=== PATIENT | female | born 1930 | race Caucasian/White ===

== ENCOUNTER → 2016-05-31 | Outpatient (CLI) | payer OTHER ==
[~2016-05-31] MED LIST: ADULT LOW DOSE81 M1 PO; ALDACTONE50 MG PO; ALLOPURINOL100 MG PO; COUMADIN,JANTOVE1 MG PO; COUMADIN1 MG PO; LASIX40 MG PO; PRINIVIL20 MG PO; SILDENAFIL PO; TOPROL XL50 MG PO; TORSEMIDE100 MG PO; WARFARIN SODIUM1 MG PO; ZOCOR20 MG PO
[2016-05-31 09:52] LABS: TYPE OF FLUID PLEURAL
[2016-05-31 10:40] LABS: BODY FLUID LDH 88 IU/L; BODY FLUID PROTEIN 3.7 G/DL
[2016-05-31 10:42] LABS: BODY FLUID RBC'S 103500 /MM^3 (0-100); BODY FLUID WBC'S 383 /MM^3 (0-500); RED CELL AREA COUNTED 0.4; RED CELL DILUTION 10; WBC AREA COUNTED 8; WBC DILUTION 1; WHITE CELL RAW COUNT 306
[2016-05-31 10:45] LABS: BODY FLUID EOSINOPHILS 0 % (0-25); MONO RAW COUNT 54; MONONUCLEAR WBC'S 54 %; POLY RAW COUNT 46; POLYNUCLEAR WBC'S 46 % (0-25)
== END | disposition home or self-care (01) ==
LOC: RAD 08:26 → EDSTATUS 09:00 → RAD 09:00
PROVIDERS: Radiology Diagnostic Radiology
PROC: 0W993ZZ Drainage of Right Pleural Cavity, Percutaneous Approach (ICD-10-PCS; principal; 2016-05-31)
DX: J90 Pleural effusion, not elsewhere classified (principal)
CPT/HCPCS: 82945; 83615 91; 84157; 87070; 87075; 87205; 88108; 88305; 89051

== ENCOUNTER → 2016-09-15 | Outpatient (CLI) | payer OTHER ==
[~2016-09-15] MED LIST changes: +BENTYL20 MG PO; +BUMEX2 MG PO; +INCRUSE ELLI62.5 MCG IH; +METOPROLOL TART25 MG PO; +PROAIR HFA8.5 GM IH
[2016-09-15 09:49] LABS: INTER. NORMALIZED RATIO 1.4; PROTHROMBIN TIME 14.3 (9.2-11.2); PTT 29.1 (25-32)
== END | disposition home or self-care (01) ==
LOC: OPR 08:31 → EDSTATUS 09:00 → OPR 09:00
PROVIDERS: Internal Medicine Pulmonary Disease
PROC: 0B9K30Z Drainage of Right Lung with Drainage Device, Percutaneous Approach (ICD-10-PCS; principal; 2016-09-15)
DX: J90 Pleural effusion, not elsewhere classified (principal)
CPT/HCPCS: 77012; 85610; 85730; C1729; J3010

== ENCOUNTER 2016-10-23 13:45 | Emergency (ER) | payer OTHER ==
[~2016-10-23] VITALS: Ht 160 cm; Wt 70.3 kg
[2016-10-23 14:38] LABS: EOSINOPHIL (%) 1.5 % (0-5); EOSINOPHIL COUNT 0.1 K/uL (0-0.3); HEMATOCRIT 26.2 % (36.0-46.0); IMMATURE GRANULOCYTE (%) 0.3 % (0.0-0.7); INSTRUMENT ABS NEUTROPHIL CT 5.1 K/uL; LYMPHOCYTE COUNT 0.5 K/uL (1.0-2.8); MCH 30.1 PG (29.0-34.0); MCHC 30.9 G/DL (30.0-36.0); MCV 97.4 FL (83-99); MEAN PLAT.VOLUME 9.2 uM^3 (9.5-12.4); MONOCYTE (%) 5.1 % (3-12); MONOCYTE COUNT 0.3 K/uL (0-0.8); NEUTROPHIL (%) 84.2 % (45-76); NEUTROPHIL COUNT 5.1 K/uL (1.8-6.4); PLATELET COUNT 160 K/uL (156-360); RBC DIS.WIDTH-CV 17.2 % (11.8-14.6); RBC DIS.WIDTH-SD 61.1 % (39-53); RED BLOOD COUNT 2.69 M/uL (3.80-5.20); WHITE BLOOD COUNT 6.1 K/uL (4.1-10.2)
[2016-10-23 14:46] LABS: CHLORIDE 102 mEq/L (99-109); POTASSIUM 5.5 mEq/L (3.7-5.4); SODIUM 137 mEq/L (136-147)
[2016-10-23 14:48] LABS: GLUCOSE 108 mg/dL (70-99)
[2016-10-23 14:49] LABS: ANION GAP 9 MEQ/L (2-14)
[2016-10-23 14:51] LABS: GFR ESTIMATE (CALCULATED) 18 mL/min/
[2016-10-23 14:52] LABS: UREA NITROGEN (BUN) 97 mg/dL (9-23)
[2016-10-23 14:53] LABS: INTER. NORMALIZED RATIO 3.2
[2016-10-23 14:54] LABS: PROTHROMBIN TIME 34.1 (9.2-11.2)
[2016-10-23 17:01] VITALS: BP 118/40
[2016-10-24] MEDS ORDERED: REVATIO20 MG PO (19:23)
[2016-10-24] MEDS ORDERED: PROTONIX20 MG PO (19:23)
== END 2016-10-23 17:14 | disposition home or self-care (01) ==
LOC: EME 13:45
PROVIDERS: Emergency Medicine
DX: S09.90XA Unspecified injury of head, initial encounter (principal); S02.2XXA Fracture of nasal bones, initial encounter for closed fracture; T14.8 Other injury of unspecified body region; W18.12XA Fall from or off toilet with subsequent striking against object, initial encounter; I10 Essential (primary) hypertension; E78.5 Hyperlipidemia, unspecified; Z79.01 Long term (current) use of anticoagulants; Z90.49 Acquired absence of other specified parts of digestive tract
CPT/HCPCS: 70450; 70486; 80048; 85025; 85610; 93005; 99281; 99285

== ENCOUNTER 2016-10-23 23:35 | Inpatient (IN) | payer OTHER ==
[~2016-10-23] VITALS: Ht 160 cm; Wt 69.9 kg
[2016-10-24] VITALS (18 sets, daily range): BP systolic 106–138; BP diastolic 52–75
[2016-10-24 00:52] LABS: HEMATOCRIT 25.1 % (36.0-46.0); MCH 29.7 PG (29.0-34.0); MCHC 30.7 G/DL (30.0-36.0); MCV 96.9 FL (83-99); MEAN PLAT.VOLUME 9.1 uM^3 (9.5-12.4); PLATELET COUNT 153 K/uL (156-360); RBC DIS.WIDTH-CV 17.3 % (11.8-14.6); RBC DIS.WIDTH-SD 60.8 % (39-53); RED BLOOD COUNT 2.59 M/uL (3.80-5.20); WHITE BLOOD COUNT 6.6 K/uL (4.1-10.2)
[2016-10-24 01:06] LABS: CHLORIDE 103 mEq/L (99-109); INTER. NORMALIZED RATIO 3.2; POTASSIUM 5.1 mEq/L (3.7-5.4); PROTHROMBIN TIME 34.1 (9.2-11.2); PTT 39.2 (25-32); SODIUM 140 mEq/L (136-147)
[2016-10-24 01:08] LABS: GLUCOSE 124 mg/dL (70-99)
[2016-10-24 01:09] LABS: ANION GAP 10 MEQ/L (2-14)
[2016-10-24 01:11] LABS: GFR ESTIMATE (CALCULATED) 18 mL/min/
[2016-10-24 01:16] LABS: UREA NITROGEN (BUN) 101 mg/dL (9-23)
[2016-10-24 07:20] LABS: TROP-I INTERPRETATION NEGATIVE; TROPONIN-I 0.09 ng/mL (0.0-0.30)
[2016-10-24 15:45] LABS: INTER. NORMALIZED RATIO 1.5; PROTHROMBIN TIME 15.7 (9.2-11.2)
[2016-10-24 15:47] LABS: HEMATOCRIT 20.5 % (36.0-46.0); MCH 30.4 PG (29.0-34.0); MCHC 30.7 G/DL (30.0-36.0); MEAN PLAT.VOLUME 9.9 uM^3 (9.5-12.4); PLATELET COUNT 128 K/uL (156-360); RBC DIS.WIDTH-CV 17.3 % (11.8-14.6); RBC DIS.WIDTH-SD 62.4 % (39-53); RED BLOOD COUNT 2.07 M/uL (3.80-5.20); WHITE BLOOD COUNT 4.6 K/uL (4.1-10.2)
[2016-10-24 15:51] LABS: ANION GAP 12 MEQ/L (2-14); CHLORIDE 103 MEQ/L (99-109); GFR ESTIMATE (CALCULATED) 20 mL/min/; GLUCOSE 139 mg/dL (70-99); POTASSIUM 4.6 MEQ/L (3.7-5.4); SAMPLE HEMOLYSIS CHECK 0; SAMPLE ICTERIC CHECK 0; SAMPLE LIPEMIA CHECK 0; SODIUM 138 MEQ/L (136-147); UREA NITROGEN (BUN) 92 mg/dL (9-23)
[2016-10-24] MEDS ORDERED: REVATIO20 MG PO (19:23)
[2016-10-24] MEDS ORDERED: PROTONIX20 MG PO (19:23)
[2016-10-25] VITALS (7 sets, daily range): BP systolic 124–155; BP diastolic 60–72
[2016-10-25 08:28] LABS: EOSINOPHIL (%) 0.3 % (0-5); HEMATOCRIT 29.9 % (36.0-46.0); IMMATURE GRANULOCYTE (%) 0.7 % (0.0-0.7); IMMATURE GRANULOCYTE COUNT 0.1 K/uL; INSTRUMENT ABS NEUTROPHIL CT 6.5 K/uL; LYMPHOCYTE COUNT 0.5 K/uL (1.0-2.8); MCH 29.8 PG (29.0-34.0); MCHC 32.4 G/DL (30.0-36.0); MONOCYTE (%) 4.6 % (3-12); MONOCYTE COUNT 0.3 K/uL (0-0.8); NEUTROPHIL (%) 87.4 % (45-76); NEUTROPHIL COUNT 6.5 K/uL (1.8-6.4); PLATELET COUNT 146 K/uL (156-360); RBC DIS.WIDTH-CV 19.9 % (11.8-14.6); RBC DIS.WIDTH-SD 64.9 % (39-53); WHITE BLOOD COUNT 7.4 K/uL (4.1-10.2)
[2016-10-25 08:57] LABS: ANION GAP 13 MEQ/L (2-14); CHLORIDE 102 MEQ/L (99-109); GFR ESTIMATE (CALCULATED) 20 mL/min/; GLUCOSE 132 mg/dL (70-99); INTACT PARATHYROID HORMONE 316 pg/mL (10-69); IRON 50 MCG/DL (35-150); POTASSIUM 4.4 MEQ/L (3.7-5.4); SAMPLE HEMOLYSIS CHECK 0; SAMPLE ICTERIC CHECK 0; SAMPLE LIPEMIA CHECK 0; SODIUM 141 MEQ/L (136-147); UREA NITROGEN (BUN) 81 mg/dL (9-23)
[2016-10-25 08:58] LABS: RED BLOOD COUNT 3.25 M/uL (3.80-5.20)
[2016-10-25 09:13] LABS: FERRITIN 56 NG/ML (10-291)
[2016-10-25 13:10] LABS: POC NON-PRINT COM 1 ND
[2016-10-25 20:54] LABS: UR CREATININE CONCENTRATION 56.5 MG/DL
[2016-10-26 04:01] VITALS: BP 129/68
[2016-10-26 06:34] LABS: HEMATOCRIT 29.2 % (36.0-46.0); MCH 29.9 PG (29.0-34.0); MCHC 32.2 G/DL (30.0-36.0); MEAN PLAT.VOLUME 9.7 uM^3 (9.5-12.4); PLATELET COUNT 137 K/uL (156-360); RBC DIS.WIDTH-CV 19.5 % (11.8-14.6); RED BLOOD COUNT 3.14 M/uL (3.80-5.20); WHITE BLOOD COUNT 7.7 K/uL (4.1-10.2)
[2016-10-26 07:28] LABS: ANION GAP 12 MEQ/L (2-14); CHLORIDE 106 MEQ/L (99-109); GFR ESTIMATE (CALCULATED) 23 mL/min/; GLUCOSE 99 mg/dL (70-99); POTASSIUM 3.9 MEQ/L (3.7-5.4); SAMPLE HEMOLYSIS CHECK 0; SAMPLE ICTERIC CHECK 0; SAMPLE LIPEMIA CHECK 0; SODIUM 143 MEQ/L (136-147); UREA NITROGEN (BUN) 75 mg/dL (9-23)
[2016-10-26 08:31] VITALS: BP 126/60
[2016-10-26 11:17] LABS: C DIFF TOXIN NEGATIVE (NEGATIVE); PROBE CHECK PASS; SPECIMEN PROCESSING CONTROL PASS
[2016-10-26 11:59] VITALS: BP 119/58
[2016-10-26 15:57] VITALS: BP 128/60
[2016-10-26 21:07] VITALS: BP 134/61
[2016-10-27] VITALS (7 sets, daily range): BP systolic 110–125; BP diastolic 56–64
[2016-10-27 06:08] LABS: HEMATOCRIT 27.4 % (36.0-46.0); MCH 29.8 PG (29.0-34.0); MCHC 31.4 G/DL (30.0-36.0); MCV 94.8 FL (83-99); MEAN PLAT.VOLUME 9.8 uM^3 (9.5-12.4); PLATELET COUNT 131 K/uL (156-360); RBC DIS.WIDTH-CV 19.1 % (11.8-14.6); RBC DIS.WIDTH-SD 64.4 % (39-53); RED BLOOD COUNT 2.89 M/uL (3.80-5.20); WHITE BLOOD COUNT 7.7 K/uL (4.1-10.2)
[2016-10-27 06:28] LABS: ANION GAP 12 MEQ/L (2-14); CHLORIDE 106 MEQ/L (99-109); GFR ESTIMATE (CALCULATED) 24 mL/min/; GLUCOSE 121 mg/dL (70-99); SAMPLE HEMOLYSIS CHECK 0; SAMPLE ICTERIC CHECK 0; SAMPLE LIPEMIA CHECK 0; SODIUM 142 MEQ/L (136-147); UREA NITROGEN (BUN) 67 mg/dL (9-23)
[2016-10-28] VITALS (8 sets, daily range): BP systolic 110–132; BP diastolic 54–68
[2016-10-28 07:10] LABS: HEMATOCRIT 30.1 % (36.0-46.0); MCHC 30.6 G/DL (30.0-36.0); MEAN PLAT.VOLUME 9.8 uM^3 (9.5-12.4); PLATELET COUNT 158 K/uL (156-360); RBC DIS.WIDTH-SD 64.2 % (39-53); RED BLOOD COUNT 3.17 M/uL (3.80-5.20); WHITE BLOOD COUNT 8.9 K/uL (4.1-10.2)
[2016-10-28 07:35] LABS: ANION GAP 12 MEQ/L (2-14); CHLORIDE 104 MEQ/L (99-109); GFR ESTIMATE (CALCULATED) 23 mL/min/; GLUCOSE 98 mg/dL (70-99); POTASSIUM 3.7 MEQ/L (3.7-5.4); SAMPLE HEMOLYSIS CHECK 0; SAMPLE ICTERIC CHECK 0; SAMPLE LIPEMIA CHECK 0; SODIUM 143 MEQ/L (136-147); UREA NITROGEN (BUN) 70 mg/dL (9-23)
[2016-10-28 10:41] LABS: POINT-OF-CARE METER ID UU14149397
[2016-10-28 11:20] LABS: TROP-I INTERPRETATION NEGATIVE; TROPONIN-I 0.09 ng/mL (0.0-0.30)
[2016-10-28 17:56] LABS: TROP-I INTERPRETATION NEGATIVE
[2016-10-28 23:20] LABS: TROP-I INTERPRETATION NEGATIVE
[2016-10-29 04:05] VITALS: BP 128/60
[2016-10-29 06:13] LABS: HEMATOCRIT 30.3 % (36.0-46.0); MCH 29.6 PG (29.0-34.0); MCV 95.3 FL (83-99); MEAN PLAT.VOLUME 9.1 uM^3 (9.5-12.4); PLATELET COUNT 162 K/uL (156-360); RBC DIS.WIDTH-CV 19.2 % (11.8-14.6); RBC DIS.WIDTH-SD 65.5 % (39-53); RED BLOOD COUNT 3.18 M/uL (3.80-5.20)
[2016-10-29 06:36] LABS: ANION GAP 11 MEQ/L (2-14); CHLORIDE 105 MEQ/L (99-109); GFR ESTIMATE (CALCULATED) 24 mL/min/; GLUCOSE 105 mg/dL (70-99); POTASSIUM 4.2 MEQ/L (3.7-5.4); SAMPLE HEMOLYSIS CHECK 0; SAMPLE ICTERIC CHECK 0; SAMPLE LIPEMIA CHECK 0; SODIUM 142 MEQ/L (136-147); UREA NITROGEN (BUN) 68 mg/dL (9-23)
[2016-10-29] MEDS ORDERED: CEPHALEXIN500 MG PO (06:52)
[2016-10-29] MEDS ORDERED: BUMETANIDE1 MG PO (06:53)
[2016-10-29 07:48] VITALS: BP 142/72
[2016-10-29 10:26] VITALS: BP 110/55
== END 2016-10-29 13:29 | disposition home health service (06) | DRG 940 ==
LOC: EME 23:35 → EDOF 10-24 03:11 → 3EAST 10-24 03:11
PROVIDERS: Emergency Medicine; Hospitalist; Internal Medicine; Internal Medicine Nephrology
DX: R79.1 Abnormal coagulation profile (principal); R04.0 Epistaxis; T45.515A Adverse effect of anticoagulants, initial encounter; N17.9 Acute kidney failure, unspecified; T50.2X5A Adverse effect of carbonic-anhydrase inhibitors, benzothiadiazides and other diuretics, initial encounter; D62 Acute posthemorrhagic anemia; J34.2 Deviated nasal septum; S02.2XXA Fracture of nasal bones, initial encounter for closed fracture; S00.11XA Contusion of right eyelid and periocular area, initial encounter; W18.30XA Fall on same level, unspecified, initial encounter; I13.0 Hypertensive heart and chronic kidney disease with heart failure and stage 1 through stage 4 chronic kidney disease, or unspecified chronic kidney disease; I50.9 Heart failure, unspecified; N18.3 Chronic kidney disease, stage 3 (moderate); D63.1 Anemia in chronic kidney disease; N25.81 Secondary hyperparathyroidism of renal origin; E78.5 Hyperlipidemia, unspecified; I48.91 Unspecified atrial fibrillation; I27.2 Other secondary pulmonary hypertension; I42.9 Cardiomyopathy, unspecified; M10.9 Gout, unspecified; Z87.891 Personal history of nicotine dependence; Z86.718 Personal history of other venous thrombosis and embolism; Z79.01 Long term (current) use of anticoagulants; Z99.81 Dependence on supplemental oxygen
CPT/HCPCS: 70450; 71010; 80048; 80048 91; 80069; 81003; 82272; 82306; 82570; 82728; 82948; 83540; 83970; 84156; 84466; 84484; 85025; 85027; 85610; 85730; 86900; 86901; 86920; 87493; 93005; 94640; 94640 76; 94799; 99281; 99285; J1100; J1940; J2405; J2765; J3430; J7030; J7050; J7120; P9016; P9017; S0028

== ENCOUNTER → 2016-12-14 | Outpatient (CLI) | payer OTHER ==
[~2016-12-14] MED LIST changes: +ATIVAN0.5 MG PO; +BUMETANIDE1 MG PO; +BUMETANIDE2 MG PO; +CEPHALEXIN500 MG PO; +PROTONIX20 MG PO; +REVATIO20 MG PO
[2016-12-14 09:43] LABS: BODY FLUID LDH 57 IU/L
[2016-12-14 09:44] LABS: BODY FLUID PROTEIN < 3.0 G/DL
[2016-12-14 10:23] LABS: BODY FLUID EOSINOPHILS 0 % (0-25); BODY FLUID RBC'S 6000 /MM^3 (0-100); BODY FLUID WBC'S 238 /MM^3 (0-500); MONONUCLEAR WBC'S 86 %; POLYNUCLEAR WBC'S 14 % (0-25)
[2016-12-14 10:28] LABS: TYPE OF FLUID PERITONEAL
== END | disposition home or self-care (01) ==
LOC: RAD 07:38
PROVIDERS: Radiology Diagnostic Radiology
PROC: 0W9G3ZZ Drainage of Peritoneal Cavity, Percutaneous Approach (ICD-10-PCS; principal; 2016-12-14)
DX: R18.8 Other ascites (principal)
CPT/HCPCS: 49083; 82945; 83615 91; 84157; 87070; 87075; 87205; 89051

== ENCOUNTER → 2017-01-05 | Outpatient (CLI) | payer OTHER | END | disposition home or self-care (01) | LOC: RAD 07:34 | PROC: 0W9G3ZZ Drainage of Peritoneal Cavity, Percutaneous Approach (ICD-10-PCS; principal; 2017-01-05) | DX: R18.8 Other ascites (principal) | CPT/HCPCS: 49083 ==